=== PATIENT | female | born 1970 | race Two or more races ===

== ENCOUNTER 2019-12-25 06:20 | Day surgery (SDC) | payer OTHER ==
[~2019-12-25] VITALS: Ht 157.5 cm; Wt 94.8 kg
[2019-12-25 08:12] LABS: Basophils # (auto) 0.1 10 ^3/uL (0-0.2); Basophils % (auto) 0.9 % (0.0-2.0); Eosinophils # (auto) 1.1 10 ^3/uL (0-0.8); Eosinophils % (auto) 13.3 % (0.0-7.0); Hematocrit 37.3 % (36.0-46.0); Hemoglobin 12.4 g/dL (12.2-16.2); Lymphocytes # (auto) 2.4 10 ^3/uL (0.4-5.4); Lymphocytes % (auto) 28.5 % (10.0-50.0); Mean Corpuscular Hemoglobin 30.8 pg (28.0-32.0); Mean Corpuscular Hgb Conc. 33.2 g/dL (32.0-36.0); Mean Corpuscular Volume 92.8 fL (80.0-100.0); Monocytes # (auto) 0.8 10 ^3/uL (0-1.3); Monocytes % (auto) 9.2 % (0.0-12.0); Neutrophils # (auto) 4.1 10 ^3/uL (1.6-8.6); Neutrophils % (auto) 48.1 % (37.0-80.0); Nucleated Red Blood Cells % 0.1 %; Platelet Count (auto) 381 10^3/uL (140-450); Red Blood Cells 4.02 10^6/uL (4.0-5.20); White Blood Cell 8.5 10^3/uL (4.4-10.8)
[2019-12-25] MEDS ORDERED: ceFAZolin 1GM/50ML 100 ML IV ONE (08:21)
[2019-12-25 08:29] LABS: INR 1.01 (0.9-1.15); Partial Thromboplastin Time 27.2 sec (23.64-32.05)
[2019-12-25 08:34] LABS: Potassium 3.7 mmol/L (3.5-5.1)
[2019-12-25] MEDS ORDERED: BUPIVACAINE 0.25% INJ 50ML VIAL ONE (08:34)
[2019-12-25 08:40] LABS: Albumin 2.8 g/dL (3.4-5.0); BUN/Creatinine Ratio 14.1; Bilirubin, Total 0.3 mg/dL (0.2-1.0); Calcium 8.2 mg/dL (8.5-10.1)
[2019-12-25] MEDS ORDERED: LIDOCAINE 1% (LOCAL ANESTH.) PF 5ml SDV ONE (08:50)
[2019-12-25] MEDS ORDERED: SUCCINYLCHOLINE CHLORIDE 20 MG/ML 10ML VIAL IV ONE (08:50)
[2019-12-25] MEDS ORDERED: ROCURONIUM 10MG/ML 10ML VIAL IV ONE (09:26)
[2019-12-25] MEDS ORDERED: MIDAZOLAM HCL 1MG/1ML-2 ML VIAL ONE (09:26)
[2019-12-25] MEDS ORDERED: PROPOFOL 10 MG/ML 20 ML IV ONE (09:26)
[2019-12-25] MEDS ORDERED: ONDANSETRON HCL 4 MG/2 ML VIAL IV PRN (09:30)
[2019-12-25] MEDS ORDERED: hydrALAZINE HCL 20 MG/ML VL IV PRN (09:30)
[2019-12-25] MEDS ORDERED: HYDROmorphone HCL 2 MG/ML VL IV PRN (09:30)
[2019-12-25] MEDS ORDERED: NALOXONE HCL 0.4 MG/ML VIAL IV PRN (09:30)
[2019-12-25] MEDS ORDERED: fentaNYL CITRATE 100 MCG/2 ML VL ONE (09:49)
[2019-12-25] MEDS ORDERED: GLYCOPYRROLATE 0.2 MG/ML 1ML VIAL ONE (10:41)
[2019-12-25] MEDS ORDERED: NEOSTIGMINE 1 MG/ML INJ (10mg/10ML VIAL) ONE (10:41)
[2019-12-25] MEDS: HYDROmorphone HCL 2 MG/ML VL IV PRN ×3 (11:20→11:43)
[2019-12-25 12:20] VITALS: BP 130/78
== END 2019-12-25 13:29 | disposition home or self-care (01) ==
LOC: SUR 06:20 → EEVIPCON 06:20 → SUR 13:29
PROVIDERS: ATTEND Orthopaedic Surgery
DX: S43.431A Superior glenoid labrum lesion of right shoulder, initial encounter (principal); M75.01 Adhesive capsulitis of right shoulder; M75.111 Incomplete rotator cuff tear or rupture of right shoulder, not specified as traumatic; M75.21 Bicipital tendinitis, right shoulder; G47.33 Obstructive sleep apnea (adult) (pediatric); M19.90 Unspecified osteoarthritis, unspecified site; E66.9 Obesity, unspecified; Z68.38 Body mass index [BMI] 38.0-38.9, adult; X58.XXXA Exposure to other specified factors, initial encounter; Y93.89 Activity, other specified; Y92.89 Other specified places as the place of occurrence of the external cause; Y99.8 Other external cause status
CPT/HCPCS: 29823; 29824; 29826; 29827; 29828; 36415; 80053; 84702; 85025; 85610; 85730; C1713; J0330; J0690; J1170; J2250; J2704; J3010; J3490; A4565

== ENCOUNTER → 2020-01-08 | Emergency (ER) | payer OTHER ==
[~2020-01-08] VITALS: Ht 157.5 cm; Wt 95.3 kg
[2020-01-08 18:37] VITALS: BP 119/84
== END | disposition home or self-care (01) ==
LOC: ER 12:12 → EEVIPCON 12:12
DX: M79.604 Pain in right leg (principal)
CPT/HCPCS: 93971